=== PATIENT | male | born 1980 | race Caucasian/White ===

== ENCOUNTER 2024-08-28 12:40 | Emergency (ER) | payer SELFPAY ==
[2024-08-28 12:51] VITALS: BP 104/60; PULSE 73; RESP 17; TEMP 37.1; O2SAT 94; BMI 31.5
[2024-08-28 13:34] LABS: Glucose Urine UA Negative (Normal); Nitrate Urine Negative (Negative); Specific Gravity, Urine 1.024 (1.005-1.030)
[2024-08-28 13:37] LABS: Add Urine Microscopic? YES
[2024-08-28 14:41] VITALS: BP 112/62; PULSE 87; RESP 16; O2SAT 96
--- NOTE | 2024-08-28 14:42 | W.ED.MALEGU ---
HPI - Male Genitourinary General: Chief complaint: Urogenital-Male Stated complaint: prostate pain Time Seen by Provider: 08/28/24 14:26 History of Present Illness: 44-year-old male presents emergency room with complaint of difficulty with urination is having increasing nocturia. He denies any hematuria. No dysuria urgency. It has been progressively worsening the last couple of months. He has not had any changes in his bowel movements. Denies penile drainage. No hematuria. Associated symptoms: Deny dysuria Related Data Previous Rx's ?Medication ?Instructions ?Recorded sulfamethoxazole 800 1 tab PO BID 28 days #56 tabs 08/28/24 mg-trimethoprim 160 mg tablet (Bactrim DS) tamsulosin 0.4 mg capsule (Flomax) 0.4 mg PO DAILY #30 caps 08/28/24 Allergies Allergy/AdvReac Type Severity Reaction Status Date / Time No Known Allergies Allergy Verified 08/28/24 12:53 Review of Systems Const: Denies: fever(s) or chills Card: Denies: chest pain Resp: Denies: dyspnea GI: Denies: abdominal pain : Denies: dysuria, urinary frequency or urinary urgency Musc: Denies: neck pain or back pain Skin/Breast: Denies: rash Physical Exam Const: GENERAL APPEARANCE: cooperative ORIENTATION/CONSCIOUSNESS: Yes awake, Yes oriented to person, Yes oriented to place and Yes oriented to time HENMT: COMMON NORMALS: normocephalic, atraumatic and hearing grossly normal bilaterally HEAD & SCALP: normocephalic and atraumatic Resp: COMMON NORMALS: normal respiratory effort, No retractions, No use of accessory muscles and clear to auscultation bilaterally AUSCULTATION: clear to auscultation bilaterally Cardio: COMMON NORMALS: regular rate, regular rhythm and No murmurs present (Cardio) RATE: regular rate RHYTHM: regular rhythm GI: COMMON NORMALS: Soft to palpation and No hepatosplenomegaly present AUSCULTATION: Yes normoactive bowel sounds PALPATION: Yes Soft to palpation, No Tenderness to palpation present (GI), No Guarding due to palpation present (GI) and Yes No hepatosplenomegaly present OTHER: Rectal exam prostate exquisitely tender boggy and edematous no nodules noted Extremity: COMMON NORMALS: normal to inspection, capillary refill normal, no clubbing, cyanosis or edema, no calf tenderness and no pedal edema Neuro: SENSORIUM/ORIENTATION: Yes oriented to person, Yes oriented to place and Yes oriented to time Skin: COMMON NORMALS: no rashes or lesions noted GENERAL SKIN EXAM: no rashes or lesions noted Course Vital Signs: Vital signs: Vital Signs Temperature 98.7 F 08/28/24 12:51 Pulse Rate 73 08/28/24 15:23 Respiratory Rate 16 08/28/24 14:41 Blood Pressure 121/77 08/28/24 15:23 Pulse Oximetry 97 08/28/24 15:23 Oxygen Delivery Me thod Room Air 08/28/24 12:51 MDM - Male Medical Decision Making Acute prostatitis. Will start on Bactrim DS 1 p.o. twice daily x 28 days. Also started on tamsulosin 1. Urine unremarkable. No significant residual postvoid. Follow-up with primary care within the next 2 weeks. Medical Records I reviewed the patient's medical records. Lab Data I reviewed the patient's lab results. Laboratory Results Urine Color Yellow (Yellow) 08/28/24 13:06 Urine Appearance Clear (CLEAR) 08/28/24 13:06 Urine pH 6.0 (5-7) 08/28/24 13:06 Ur Specific [place] 1.024 (1.005-1.030) 08/28/24 13:06 Urine Protein Negative (Negative) 08/28/24 13:06 Urine Glucose (UA) Negative (Normal) 08/28/24 13:06 Urine Ketones Negative (Negative) 08/28/24 13:06 Urine Blood Negative (Negative) 08/28/24 13:06 Urine Nitrate Negative (Negative) 08/28/24 13:06 Urine Bilirubin Negative (Negative) 08/28/24 13:06 Urine Urobilinogen 1.0 mg/dL (Negative) 08/28/24 13:06 Ur Leukocyte Esterase Negative (Negative) 08/28/24 13:06 Urine RBC 0-2 /hpf (0-2) 08/28/24 13:06 Urine WBC 0-5 /hpf (0-5) 08/28/24 13:06 Ur Squamous Epith Cells 0-5 /hpf (0-5) 08/28/24 13:06 Amorphous Sediment Not Reportable 08/28/24 13:06 Urine Bacteria None seen /hpf (NONE) 08/28/24 13:06 Hyaline Casts 0-4 /lpf H 08/28/24 13:06 No radiology studies performed this visit Discharge Plan Discharge Patient Disposition: Home Clinical Impression: Prostatitis Condition: Stable Prescriptions: New tamsulosin [Flomax] 0.4 mg capsule 0.4 mg PO DAILY Qty: 30 0RF sulfamethoxazole-trimethoprim [Bactrim DS] 800-160 mg tablet 1 tab PO BID 28 Days Qty: 56 0RF Discontinued trazodone 50 mg tablet 50 mg PO DAILY Discharge Orders: Discharge ED (Routine); Ordered 08/28/24 Ordered By: Edison Pena Discharge Diet: Usual diet Discharge Activity: Increase activity as tolerated Patient Instructions: Prostatitis (ED), Opioid Safety, Pain Management, Patient Portal & [place] Instructions Activity Restrictions/Additional Instructions: Thank you for choosing [facility] for your healthcare needs today. It is very important that you follow up as instructed or that you return to the Emergency Department should you have concerns or if your condition changes or worsens in any way. You were seen in the emergency room with complaints of difficulty with urination and rectal discomfort. Urine did not show any sign of infection on exam your prostate is thick and mildly inflamed exquisitely tender. There is no nodules noted. Recommend you start on tamsulosin to allow easier emptying of the bladder additionally we will put you on antibiotics 1 pill twice a day for 4 weeks. You should follow-up with your primary care doctor. 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
[2024-08-28 15:23] VITALS: BP 121/77; PULSE 73; O2SAT 97
== END 2024-08-28 15:23 | disposition home or self-care (01) ==
PROVIDERS: Emergency Provider Family Medicine
DX: N41.9 Inflammatory disease of prostate, unspecified (principal)
CPT/HCPCS: 51798; 81001; 99283

== ENCOUNTER → 2024-09-01 09:23 | Outpatient (BNVA) | payer BC, SELFPAY | PROVIDERS: Visit Provider Nurse Practitioner | DX: Z12.5 Encounter for screening for malignant neoplasm of prostate (principal); N41.9 Inflammatory disease of prostate, unspecified | CPT/HCPCS: 80053; 85025; G0103 ==